=== PATIENT | female | born 1975 | race Caucasian/White ===

== ENCOUNTER → 2024-08-30 | Outpatient (CLI) | payer SELFPAY ==
--- NOTE | 2024-08-30 13:30 | BI_ITS ---
EXAM: SCRN MAMM (CAD)W/CHARMAINE BILAT DATE: 08/30/2024 CLINICAL HISTORY: F, Age 48 y/o , SCREEN BREAST CANCER RISK ASSESSMENT: Has not been calculated. TECHNIQUE: Bilateral screening digital breast tomosynthesis with 2D and 3D images. Computer aided detection. COMPARISON: Prior exam(s) dated 05/10/2016. FINDINGS: TISSUE DENSITY: The breast tissue is composed of scattered area of fibroglandular density. Bilateral Breast Mammographic Findings: Benign vascular calcifications and round calcifications are seen in both breasts. No suspicious masses, suspicious cluster of microcalcifications, architectural distortion or secondary signs of malignancy is identified in either breast. A stable benign-appearing intramammary lymph node in the superior, far posterior aspect of the right breast is noted. BI/SCRN MAMM (CAD)W/CHARMAINE BILAT IMPRESSION: OVERALL FINAL ASSESSMENT: BIRADS 2 BENIGN FINDING RECOMMENDATION: Routine annual follow-up in 1 Year A letter with findings and recommendations will be mailed to the patient. Reading Location: [id number]
[2024-09-02 14:09] LABS: HPV APTIMA, High Risk Negative (Negative)
== END | disposition home or self-care (01) ==
PROVIDERS: PCP Family Medicine; Referring Provider Nurse Practitioner Women's Health; Visit Provider Nurse Practitioner Women's Health
DX: Z12.31 Encounter for screening mammogram for malignant neoplasm of breast (principal); Z12.4 Encounter for screening for malignant neoplasm of cervix
CPT/HCPCS: 77063; 77067; 87624; 88175; G0145

== ENCOUNTER → 2025-03-29 | Outpatient (CLI) | payer SELFPAY | END | disposition home or self-care (01) | PROVIDERS: PCP Family Medicine | DX: R53.83 Other fatigue (principal); W57.XXXA Bitten or stung by nonvenomous insect and other nonvenomous arthropods, initial encounter | CPT/HCPCS: 36415; 86617 ==